=== PATIENT | female | born 2000 | race Caucasian/White ===

== ENCOUNTER 2025-07-06 10:06 | Outpatient (CLI) | payer OTHER, SELFPAY ==
--- OUTSIDE RECORDS SUMMARY | 2025-07-06 11:04 | XMS_ITS | Clinical Summary ---
Author Organization [facility] Healthcare Address [address] [place] [address] Care Team Providers Care Blanker Operator Name Role Phone No, Physician Primary Care Provider [phone] Allergies Active Allergy Reactions Criticality Noted Date Comments Hydrocodone-Acetaminophen Nausea & Vomiting High Medications levonorgestreL (Mirena) IUD Take by intrauterine route. Active FLUoxetine (PROzac) 40 mg capsule Take 1 capsule (40 mg total) by mouth daily 10/29/20 23 Active Additional Information Patient not taking.Reported on 03/14/2024 cyanocobalamin (Vitamin B-12) 1,000 mcg tabletIndicati ons:Prevention of Vitamin B12 Deficiency Take 1 tablet (1,000 mcg total) by mouth daily 11/25/19 24 Active cyanocobalamin (Vitamin B-12) 1,000 mcg/mL injection Inject 1 mL (1,000 mcg total) into the muscle as instructed every 30 (thirty) days for 3 doses 1 mL 2 06/18/20 25 025 Active cyanocobalamin (Vitamin B-12) 1,000 mcg/mL injection Inject 1 mL (1,000 mcg total) into the muscle as instructed every 7 days for 4 doses 11/02/20 23 025 Discontinued Active Problems Problem Noted Date Diagnosed Date 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 major depressive episodes, moderate Ataxia 10/22/2023 Visual disturbance 03/14/2022 Steatosis of liver 02/08/2021 Contraceptive management 12/08/2018 Overview (10/22/2023): Encounter for routine checking of intrauterine contracep dev;Practice ID: [id number] Bleeding 11/24/2018 Overview (10/22/2023): Abnormal uterine and vaginal bleeding, unspecified;Recorded Elsewhere: No Location: [facility] Source: EHR Chronic: N Practice ID: [id number] Billable Time: 09:00:00 AM Syphilis contact 04/28/2016 Overview (10/22/2023): Encntr screen for infections w sexl mode of transmiss;Recorded Elsewhere: No Location: [facility] Source: EHR Chronic: N Practice ID: [id number] Billable Time: 01:00:00 PM Irregular periods 05/11/2015 Overview (10/22/2023): Irregular menstrual bleeding;Recorded Elsewhere: No Location: [facility] Source: EHR Chronic: N Practice ID: [id number] Billable Time: 03:45:00 PM Leukorrhea 03/10/2015 Overview (10/22/2023): Leukorrhea, not specified as infective;Recorded Elsewhere: No Location: [facility] Source: EHR Chronic: N Practice ID: [id number] Billable Time: 08:45:00 AM Presence of subcutaneous contraceptive implant 0 05/11/2014 Overview (10/22/2023): Surveillance of implantable subdermal contraceptive;Recorded Elsewhere: No Location: [facility] Source: EHR Chronic: N Practice ID: [id number] Billable Time: 09:30:00 AM Encounters Date Type Department Care Team Description 06/30/2025 8:00 AM CDT Therapy [facility] OP Occup Therapy [address] [place] [id number] Gabino Storey OT 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 (Primary Dx); Ataxia 06/30/2025 Plan of Care Documentation [facility] OP Occup Therapy [address] [place] [phone] 06/16/2025 Telephone [facility] [address] [place] [address] [address] [place] [address] Nafisa Gustafson Med Refill 05/19/2025 1:30 PM CDT Office [facility] [address] [place] [address] [address]th [address] [place] [address] Reina Dumont MD 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 (HCC) (Primary Dx); Ataxia; Paresthesias; Depression, unspecified depression type; Decreased mobility and endurance from Last 3 Months Immunizations Immunization Administration Dates Next Due DTaP 10/04/2004, 1,2000,06/13,2000 HPV, Quadrivalent 04/06/2014,12/19/2013,04/16/20 12 Hep A, Pediatric 12/19/2013,05/04/2011 Hep B / HiB 2000,2000,2000 HiB 05/15/2001 IPV 10/04/2004, 1,2001,06/13,2000 MMR 10/04/2004,05/15/2001 Meningococcal B, Recombinant (Trumenba) 09/20/2018,05/10/2017 Meningococcal Conjugate (Menveo) 05/04/2011 Meningococcal MCV4P (Menactra) 05/10/2017 Pneumococcal Conjugate 7-Valent 10/18/20,2001,2000,08/15 Tdap 03/08/2021,03/04/2021,05/04/2011 Varicella 05/04/2011,2001 Surgical History Surgery Date Site/Laterality Comments TONSILLECTOMY/ADENOIDECTOMY LUMBAR PUNCTURE WO INJECTION, DIAGNOSTIC 10/25/2023 N/A Medical History Medical History Date Comments Depression Anxiety Family History Medical History Relation Name Comments Tourette syndrome Father No Known Problems Mother Relation Name Status Comments Father Mother Social History Tobacco Use Types Packs/Day Years Used Date Smoking Tobacco: Former Cigarettes Passive Smoke Exposure: Never Smokeless Tobacco: Never Tobacco Cessation:Counseling Given: No Comments:Past cigarette use-only 1-2 on the weekends occasionally AUDIT-C Answer Date Recorded Q1: How often do you have a drink containing alc ohol? Monthly or less 12/11/2023 Q2: How many drinks containi ng alcohol do you have on a typical day when you are drinking? 5 or 6 12/11/2023 Q3: How often do you have si x or more drinks on one occasion? Less than monthly 12/11/2023 Hunger Vital Sign Answer Date Recorded Within the past 12 months, y ou worried that your food would run out before you got the money to buy more. Never true 05/19/20 25 Within the past 12 months, t he food you bought just didn't last and you didn't have money to get more. Never true 05/19/2025 Personal Safety Answer Date Recorded Have you ever been in or are you currently in a harmful physical or emotional relationship or is someone making you feel afraid or unsafe? 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 Gender Identity Not on file Sexual Orientation Not on file Obstetrics History Para Term AB IAB SAB Ectopic Multiple Livin g Live Births 0 0 0 0 0 0 0 0 0 0 0 Last Filed Vital Signs Vital Sign Reading Time Taken Comments Blood Pressure 105/72 05/19/2025 1:52 PM CDT Pulse 97 05/19/2025 1:52 PM CDT Temperature 37.1 C (98.7 F) 08/18/2024 3:08 PM CDT Respiratory Rate 18 01/16/2025 9:48 AM F[employer]TT[employer] INSTRUM[employer] INSPECTOR Oxygen Saturation 98% 05/19/2025 1:52 PM CDT Inhaled Oxygen Concentration - - Weight 86.4 kg (190 lb 8 oz) 05/19/2025 1:52 PM CDT Height 160 cm (5' 3) 05/19/2025 1:52 PM CDT Body Mass Index 33.75 05/19/2025 1:52 PM CDT Plan of Treatment Health Maintenance Due Date Last Done Comments Cervical Cancer Screening 2000 Depression Screening 2000 Pneumococcal vaccine <65 (1 of 1 - PPSV23, PCV20, or PCV21) 02/10/2006 10/18/2001, 2001, 2000, Additional history exists Regular Well Visit/Exam 18-64 02/10/2018 Covid-19 Vaccine (2 - 2023-2 5 season) 2024 02/15/2021 Influenza Vaccine (#1) 2025 DTaP/Tdap/Td Vaccine (9 - Td or Tdap) 03/08/2031 03/08/2021, 03/04/2021, 05/04/2011, Additional history exists Varicella Vaccines Completed 05/04/2011, 2001 HPV Vaccines Completed 04/06/2014, 11/21, 04/16/2012 Hepatitis C Screening Completed 10/22/2023 , 10/22/2023, 10/22/2023, Additional history exists Procedures Procedure Name Priority Date/Time Associated Diagnosis Comments HEPATITIS PANEL, ACUTE STAT 10/22/2023 8:23 PM FRETTED INSTRUMENTS INSPECTOR from Last 3 Months or Most Recently Relevant to Health Maintenance Results * Hepatitis panel, acute Blood (10/22/2023 8:23 PM FRETTED INSTRUMENTS INSPECTOR) Hep A IgM Nonreactive Nonreactive [facility] Hep B core IgM Nonreactive Nonreactive [facility] Hep C Ab Nonreactive Nonreactive [facility] Comment:Antibodies to HCV no t detected. Does NOT exclude the possibility of recent exposure to HCV. Current interpretive data was last revised on 22 HepBsAg Nonreactive Nonreactive [facility] Blood 10/22/2023 8:23 PM FRETTED INSTRUMENTS INSPECTOR 10/22/2023 8:40 PM FRETTED INSTRUMENTS INSPECTOR us Vini Cameron MD LAB MICROBIOLOGY - GENERAL ORDERABLES Final Result [facility] [place] [address] from Last 3 Months or Most Recently Relevant to Health Maintenance Insurance [facility] [place] [address] [place] [address] Advance Directives For more information, please contact: [phone] * Full Code (Latest Code Status on File) Date Activated Date Inactivated Comments 10/23/2023 3:31 PM 10/30/2023 8:13 PM Care Teams Blanker Operator Relationship Specialty Start Date End Date No, Physician PCP - General 12/11/23
== END 2025-07-06 10:07 | disposition home or self-care (01) ==
LOC: ANHAUDIO 10:07
PROVIDERS: PCP Pediatrics Adolescent Medicine; Visit Provider Otolaryngology
DX: H69.93 Unspecified Eustachian tube disorder, bilateral (principal)
CPT/HCPCS: 92557; 92567

== ENCOUNTER 2025-09-29 00:50 | Day surgery (SDC) | payer OTHER, SELFPAY ==
--- NOTE | 2025-09-21 12:49 | SUR.PREOP ---
[facility] has started construction of its new state of the art ER which will open Spring 2026. With this, we anticipate parking may be a challenge for some our surgical patients and families. Parking spaces are limited but are available for all Surgical, obstetrics, and ER patients sharing this lot. If you arrive and find you are having a hard time finding a parking space, please note that we understand the challenges, please drive around the hospital and park near Hospital Entrance 1. When you enter this entrance, you can ask a volunteer to direct or take you back to the surgical waiting area to check in. We appreciate everyone?s understanding of these expected challenges while we build for your future. Report to the Outpatient Waiting Room, entrance under the green pavilion located off [address], at time _630AM_ on date _09/29/25__. Planned Procedure Time: _830__.? Time changes happen often and if your time is changed the preop area will call you the afternoon before. - You and your visitor will be asked to self-screen and do not enter if you have any COVID symptoms. Please call surgeon if you need to reschedule. - A mask is optional within the hospital at this time. Patients may have clear liquids (water, carbonated beverages, clear teas, apple juice) until 3 hours prior to surgery with a maximum of 20 ounces. - No food from midnight until time of surgery and no smoking, or chewing tobacco (or any form of nicotine). No chewing gum, candy or mints. Take only the following medications with a SIP of water on the morning of surgery: __None__ DO NOT STOP ANY OF YOUR OTHER PRESCRIPTION MEDICATIONS PRIOR TO SURGERY EXCEPT THE FOLLOWING Hold all vitamins and supplements for 3 days per anesthesiologist. Medications to discontinue per physician __Per Surgeons instructions__ Date to take last dose of vitamins_09/25/25__ Please no make-up, nail yi, hairspray, perfume, deodorant, or body powder the day of surgery.? No jewelry (including any body piercings) or valuables the day of surgery, leave them at home.? Please take a shower or bath the night before, or the morning of, surgery with an antibacterial soap.? Wear comfortable, loose fitting clothing.? - Jewelry must be removed prior to entering the operating room.? Rings and piercings that are not removed may be cut off. - The hospital will not accept responsibility for valuables.? - Please leave all valuables, including medications, at home the day of surgery. If you are going home after surgery, a licensed regional owner operator truck driver must drive you home.? - NO public transportation without another adult if you receive anesthesia. - We recommend that an adult stay with you for 24 hours following discharge. - We also recommend that you do not drive, make important decision, drink alcoholic beverages, or take any drugs that were not prescribed by your health care provider for at least 24 hours after your discharge time. Follow any additional instructions given to you from your surgeon. Telephone instructions given to _Rosa Isela Meneses)__and asked if any additional questions and then verbalized understanding. Patient advised to call surgeon office or pre surgery nurse liaison [phone] if any additional questions.
[2025-09-21 12:57] VITALS: BMI 33.7
[2025-09-29] VITALS (7 sets, daily range): BP systolic 114–141; BP diastolic 67–88; PULSE 63–90; RESP 10–20; TEMP 36.4–36.6; O2SAT 99–100
--- OUTSIDE RECORDS SUMMARY | 2025-09-29 00:52 | XMS_ITS | Data Portability ---
Author Organization [place], [facility] Address [address] [place] [address] [address] Care Team Providers Care Inspector Aide Name Role Phone KEENAN ALMEIDA Primary Care Provider [phone] Assessment No assessment recorded. Plan of Treatment Reminders Order Date Submit Date Provider Last Modified By Organization Details Last Modified Time Details Appointments SURG Salpingec fl[place] 2024 08:30A Awa TSAI MD Not available Not available Not available SURG POST OP 2024 04:15P Awa TSAI MD Not available Not available Not available Lab test, urine 2024 025 [facility], [facility] [address], [place], [address], 05/27/2025 15:55:25 Referral None recorded. Procedures insertion , intrauter ine device (PROC) 2024 025 [facility], [facility] [address], [place], [address], 08/24/2025 12:52:26 Surgeries salpingec fl[place], laparosco pic (SURG) [id number] [place] [address], [facility] [address], [place], [address], 08/24/2025 09:50:47 hysterosc opy, removal of foreign body (SURG) 2024 025 [email or web address] [facility], [address], [place], [address], 08/24/2025 09:51:20 Imaging US, pelvis 2024 [address], [address], [place], [address], 08/13/2025 18:25:28 US, transvagi nal 2024 [address], [place], [address], 08/13/2025 18:25:28 Medication Orders Bactrim DS 800 mg-160 mg tablet 2024 025 [id number], [address], [place], [id number], 09/02/2025 13:04:05 ParaGard T 380A 380 square mm intrauter ine device 2024 025 [email or web address] [id number] [address], [place], [id number], 05/27/2025 16:07:18 Patient TargetsNo targets recorded. Patient InstructionsNo instructions recorded. Reason for Referral None Reported. Results Created Date Observation Date Name Description Value Unit Range Abnormal Flag Note LastModifiedBy Organization Detail LastModifiedTime 05/27/2005/27/2025 pregn maria isabel test, urine HCG negati ve Not Available [place] [address], [place], [address], 05/27/2025 15:55:18 08/24/2008/24/2025 inser tion, intra uteri ne devic e (PROC ) provider notes Not Available Tyrone kay [address], [place], [address], 08/20/2025 11:46:35 08/12/2008/13/2025 US, pelvi s No observ ation record ed. [email or web address] [place] [address], [place], [address], 08/13/2025 14:34:06 08/12/20 25 08/13/2025 US, trans vagin al No observ ation record ed. [email or web address] [place] [address], [place], [address], 08/13/2025 14:34:26 08/12/20 25 08/12/2025 US, pelvi s No observ ation record ed. amos Bernadette [address], [place], [address], 08/20/2025 16:27:13 Result Notes None recorded. Problems Name Problem SNOMED Code Status Onset Date Resolution Date Notes Provider Name and Address Organization Details Recorded Time Recurren t major depressi ve episodes , moderate [id number] Completed 05/23/2022 Padminialla Sim [facility] 2 12:41:27 Contrace ption care manageme nt Completed 201305/08/2022 Other specified contracep tive managemen t;Recorde d Elsewhere : No Locati on: [facility] So urce: EHR Chron ic: N Practic e ID: 0001 Bill able Time: 02:30:00 PM Padmini Sim [facility] 2 16:25:51 Educatio n Completed 201305/08/2022 Counselin g contracep tive managemen t;Practic e ID: [id number] Padmini [facility] 2 16:25:51 Implanta tion of subcutan eous contrace ptive Completed 201305/08/2022 Insertion of implantab le subdermal contracep tive;Jakob rded Elsewhere : No Locati on: [facility] So urce: EHR Chron ic: N Practic e ID: 0001 Bill able Time: 08:30:00 AM Padmini Sim [facility] 2 16:25:50 Subcutan eous contrace ptive implant present [id number] Completed 201305/08/2022 Surveilla nce of implantab le subdermal contracep tive;Jakob rded Elsewhere : No Locati on: [facility] So urce: EHR Chron ic: N Practic e ID: 0001 Bill able Time: 09:30:00 AM Padmini Sim [facility] 2 16:25:51 Speciali zed medical examinat ion Completed 201405/08/2022 Other specified chlamydia l diseases; Recorded Elsewhere : No Locati on: [facility] So urce: EHR Chron ic: N Practic e ID: 0001 Bill able Time: 08:45:00 AM Padmini Sim [facility] 2 16:25:51 Vaginiti s and vulvovag initis Completed 201405/08/2022 Vaginitis and vulvovagi nitis, unspecifi ed;Record ed Elsewhere : No Locati on: [facility] So urce: EHR Chron ic: N Practic e ID: 0001 Bill able Time: 08:45:00 AM Padmini Sim [facility] 2 16:25:50 Leukorrh ea [id number] Completed 201405/08/2022 Leukorrhe a, not specified as infective ;Recorded Elsewhere : No Locati on: [facility] So urce: EHR Chron ic: N Practic e ID: 0001 Bill able Time: 08:45:00 AM Padmini Sim [facility] 2 16:25:50 Venereal disease screenin g Completed 201405/08/2022 SCREEN FOR VENERAL DIS;Recor ded Elsewhere : No Locati on: [facility] So urce: EHR Chron ic: N Practic e ID: 0001 Bill able Time: 11:30:00 AM Padmini phan [facility] 2 16:25:50 Lilly aguilar medical examinat ion Completed 201405/08/2022 Gynecolog ical Examinati on;Record ed Elsewhere : No Locati on: [facility] So urce: EHR Chron ic: N Practic e ID: 0001 Bill able Time: 11:30:00 AM Padmini Sim [facility] 2 16:25:51 Irregula r periods [id number] Completed 201405/08/2022 Irregular menstrual bleeding; Recorded Elsewhere : No Locati on: [facility] Source: EHR Chron ic: N Practic e ID: 0001 Bill able Time: 03:45:00 PM Padmini phan [facility] 2 16:25:51 Finding of pattern of menstrua l cycle Completed 201405/08/2022 Excessive and frequent menstruat ion with irregular cycle;Rec orded Elsewhere : No Locati on: [facility] So urce: EHR Chron ic: N Practic e ID: 0001 Bill able Time: 01:30:00 PM Padmini Sim [facility] 2 16:25:50 Infectio n screenin g Completed 201505/08/2022 Encounter for screening for oth infec/par astc diseases; Recorded Elsewhere : No Locati on: [facility] So urce: EHR Chron ic: N Practic e ID: 0001 Bill able Time: 01:00:00 PM Padmini phan [facility] 2 16:25:50 Syphilis test finding [id number] Completed 201505/08/2022 Encntr screen for infection s w sexl mode of transmiss ;Recorded Elsewhere : No Locati on: [facility] So urce: EHR Chron ic: N Practic e ID: 0001 Bill able Time: 01:00:00 PM Padmini Sim [facility] 2 16:25:51 Procedur e Completed 201605/08/2022 Encounter for checking, reinserti on or removal of implantab le subdermal contracep tive;Jakob rded Elsewhere : No Locati on: [facility] So urce: EHR Chron ic: N Practic e ID: 0001 Bill able Time: 02:45:00 PM Padmini phan [facility] 2 16:25:51 Finding of pattern of menstrua l cycle Completed 201605/08/2022 Other specified irregular menstruat ion;Recor ded Elsewhere : No Locati on: [facility] So urce: EHR Chron ic: N Practic e ID: 0001 Bill able Time: 03:30:00 PM Padmini Sim [facility] 2 16:25:[address] Concept Completed 201605/08/2022 Encntr for creative coordinator exam (general) (routine) w/o abn findings; Practice ID: [id number] Padmini Sim [facility] 2 16:25:[address] Concept Completed 201605/08/2022 Encntr for routine child health exam w/o abnormal findings; Recorded Elsewhere : No Locati on: [facility] So urce: EHR Chron ic: N Practic e ID: 0001 Bill able Time: 01:15:00 PM Padmini Sim [facility] 2 16:25:51 Insertio n of intraute rine contrace ptive device Completed 201605/08/2022 Encounter for insertion of intrauter ine contracep tive device;Pr actice ID: [id number] Padmini Sim [facility] 2 16:25:51 Pregnanc y test negative [id number] Completed 201605/08/2022 Encounter for test, result negative; Practice ID: [id number] Padmini Sim [facility] 2 16:25:50 Finding of regulari ty of menstrua l cycle Completed 201705/08/2022 Irregular menstruat ion, unspecifi ed;Practi ce ID: 0001 Padmini Sim [facility] 2 16:25:50 Procedur e by method Completed 201805/08/2022 Encounter for ot general cnsl and advice on contracep tion;Prac uche ID: 0001 Padmini Sim [facility] 2 16:25:51 Bleeding Completed 201805/08/2022 Abnormal uterine and vaginal bleeding, unspecifi ed;Record ed Elsewhere : No Locati on: [facility] So urce: EHR Chron ic: N Practic e ID: 0001 Bill able Time: 09:00:00 AM Padmini [facility] 2 16:25:50 Contrace ptive sheath status [id number] Completed 201805/08/2022 Encounter for routine checking of intrauter ine contracep dev;Pract ice ID: 0001 Padmini Sim [facility] 2 16:25:50 Influenz a vaccinat ion declined [id number] Completed 202005/23/2022 Padminialla Sim [facility] 2 12:41:27 Tetanus vaccinat ion declined by patient [id number] Completed 202005/23/2022 Padmini Sim [facility] 2 12:41:27 Steatoti c liver disease [id number] Completed 202005/23/2022 Padminialla Sim [facility] 2 12:41:27 Visual disturba nce [id number] Completed 202105/23/2022 Padminialla Sim [facility] 2 12:41:27 Problem Notes None recorded. Procedures Surgical History Date Name Laterality Status Provider Name and Address Organization Details Recorded Time 05/27/20 25 IUD Replacement completed DARCY Keating [address], [place], [address], [facility] 05/27/2025 16:25:28 02/26/20 25 Date of Last Pap Smear completed Josi Early [facility] 07/08/2025 16:36:27 tonsilectomy/ad enoids completed Usha Hussain [facility] 05/19/2020 10:20:57 Imaging Results None recorded. Procedure Notes None recorded. Medical Equipment None Reported. Allergies Allergen ID Allergen Name Allergen Category Reaction Reaction Severity Criticality Documentation Date Start Date Code Code System Note Provider Name and Address Organization Details Recorded Time 1168 acetamino phen / hydrocodo ne medicatio n vomiting severe Not available 05/19/2020 67681 2 RxNorm Usha phan, [facility] 0 10:20:27 Medications Name Sig Start Date Stop Date Status Note LastModified by Organization Details LastModified Time fluoxetin e 40 mg capsule TAKE 1 CAPSULE BY MOUTH EVERY DAY 12/23 completed Not Available Not Available Not Available Mirena 21 mcg/24 hr (up to 8 years) 52 mg intrauter ine device Take by intraute rine route. 07/08 completed Not Available Not Available Not Available prednison e 10 mg tablet 08/30 completed Not Available Not Available Not Available doxycycli ne hyclate 100 mg capsule TAKE 1 CAPSULE BY MOUTH TWICE DAILY FOR 7 DAYS 01/01 completed Not Available Not Available Not Available azithromy dillon 250 mg tablet 07/22 completed Not Available Not Available Not Available Necon 1/35 (28) 1 mg-35 mcg tablet take 1 tablet by oral route every day 04/02 completed Prescrib ed Elsewher e: No Locat ion: [facility] odify By: andreea chowdhury DateTime : 01/01/20 17 02:47:11 PM Not Available Not Available Not Available ibuprofen 800 mg tablet TAKE 1 TABLET BY MOUTH 2 HRS BEFORE PROCEDUR E 07/08 completed Not Available Not Available Not Available Loestrin Fe 12/08 (28-Day) 1 mg-20 mcg (21)/75 mg (7) tablet take 1 tablet by oral route every day 04/02 completed Prescrib ed Elsewher e: No Locat ion: [facility] odify By: andreea chowdhury DateTime : 01/15/20 17 10:23:18 AM Not Available Not Available Not Available ibuprofen 200 mg capsule take 1 capsule by oral route every 6 hours as needed 06/19 completed Prescrib ed Elsewher e: Yes Loca tion: [facility] odify By: torin cabello DateTime : 03/03/20 14 02:30:00 PM Not Available Not Available Not Available metronida zole 0.75 % (37.5 mg/5 gram) vaginal gel INSERT ONE APPLICAT ORFUL VAGINALL Y AT BEDTIME 12/04 completed Not Available Not Available Not Available cyanocoba ray (vit B-12) 1,000 mcg tablet TAKE 1 TABLET BY MOUTH EVERY DAY active Not Available Not Available No t Available metronida zole 500 mg tablet TAKE 1 TABLET BY MOUTH EVERY 12 HOURS FOR 7 DAYS 04/15 completed Not Available Not Available Not Available bacitraci n zinc 500 unit/gram topical ointment APPLY TO THE AFFECTED AREA OF SKIN TWICE DAILY FOR 5 DAYS 03/14 completed Not Available Not Available Not Available triamcino lone acetonide 0.1 % topical cream APPLY THIN LAYER TOPICALL Y TO THE AFFECTED AREA TWICE DAILY 03/29 completed Not Available Not Available Not Available ondansetr on 8 mg disintegr ating tablet DISSOLVE 1 TABLET ON THE TONGUE 2 HOURS BEFORE PROCEDUR E 07/08 completed Not Available Not Available Not Available acetamino phen ER 650 mg tablet,ex tended release TAKE 2 TABLETS BY MOUTH EVERY 8 HOURS NEEDED FOR PAIN 12/23 completed Not Available Not Available Not Available oxycodone -acetamin ophen 5 mg-325 mg tablet TAKE 2 TABLETS BY MOUTH 2 HOURS BEFORE PROCEDUR E 07/08 completed Not Available Not Available Not Available alprazola m 0.5 mg tablet TAKE 1 TABLET BY MOUTH 2 HOURS BEFORE PROCEDUR E 07/08 completed Not Available Not Available Not Available baclofen 10 mg tablet TAKE 1 TABLET BY MOUTH THREE TIMES DAILY FOR 10 DAYS NEEDED 12/04 completed Not Available Not Available Not Available benzonata te 100 mg capsule TAKE 1 TO 2 CAPSULES BY MOUTH THREE TIMES DAILY NEEDED FOR COUGH 07/22 completed Not Available Not Available Not Available doxycycli ne monohydra te 100 mg capsule TAKE 1 CAPSULE BY MOUTH TWICE DAILY FOR 7 DAYS DIRECTED 03/29 completed Not Available Not Available Not Available cephalexi n 500 mg capsule TAKE 1 CAPSULE BY MOUTH FOUR TIMES DAILY 03/14 completed Not Available Not Available Not Available cyanocoba ray (vit B-12) 1,000 mcg/mL injection solution ADMINIST ER 1 ML UNDER THE SKIN EVERY MONTH DIRECTED active Not Available Not Available No t Available fluoxetin e 20 mg tablet TAKE 2 TABLETS BY MOUTH EVERY DAY 12/23 completed Not Available Not Available Not Available lidocaine 5 % topical patch APPLY 1 PATCH TOPICALL Y TO THE SKIN EVERY DAY. MAY WEAR UP TO 12 HOURS 12/23 completed Not Available Not Available Not Available BD Luer-Breonna Syringe 3 mL 25 gauge x 1 USE TO INJECT ONCE A MONTH active Not Available Not Available No t Available norethind stella acetate 1 mg-ethiny l estradiol 20 mcg tablet TK 1 T PO ONCE D SKIPPING PLACEBO FOR CONTINUO US CYCLE 01/25 completed Not Available Not Available Not Available azelastin e 137 mcg (0.1 %) nasal spray USE 2 SPRAYS IN EACH NOSTRIL TWICE DAILY active Not Available Not Available No t Available levofloxa dillon 750 mg tablet TAKE 1 TABLET BY MOUTH EVERY DAY FOR 5 DAYS DIRECTED FOR EAR INFECTIO N 12/23 completed Not Available Not Available Not Available methylpre dnisolone 4 mg tablets in a dose pack FOLLOW PACKAGE DIRECTIO NS 07/22 completed Not Available Not Available Not Available ketoconaz ole 2 % topical cream APPLY TOPICALL Y TO THE AFFECTED AREA EVERY DAY FOR 2 WEEKS 07/22 completed Not Available Not Available Not Available fluoxetin e 20 mg capsule TAKE 1 CAPSULE BY MOUTH EVERY DAY 01/20 completed Not Available Not Available Not Available fluticaso ne propionat e 50 mcg/actua tion nasal spray,mart[employer] pension SHAKE LIQUID AND USE 2 SPRAYS IN EACH NOSTRIL EVERY DAY 12/23 completed Not Available Not Available Not Available ParaGard T 380A 380 square mm intrauter ine device Take 1 device by intraute rine route. 2024 active Not Available Not Available Not Avai lable naproxen 500 mg tablet TAKE 1 TABLET BY MOUTH TWICE DAILY FOR 5 DAYS NEEDED 03/14 completed Not Available Not Available Not Available amoxicill in 875 mg-potass ium clavulana te 125 mg tablet TAKE 1 TABLET BY MOUTH EVERY 12 HOURS FOR 7 DAYS DIRECTED 12/23 completed Not Available Not Available Not Available Bactrim DS 800 mg-160 mg tablet Take 1 tablet every 12 hours by oral route. 2024 active Not Available Not Available Not Avai lable ciproflox acin 0.3 %-dexamet hasone 0.1 % ear drops,[employer] pension SHAKE LIQUID AND INSTILL 4 DROPS TO AFFECTED EAR TWICE DAILY FOR 7 DAYS DIRECTED 12/23 completed Not Available Not Available Not Available cholecalc iferol (vitamin D3) 25 mcg (1,000 unit) tablet TAKE 2 TABLETS EVERY DAY 01/20 completed Not Available Not Available Not Available tranexami c acid 650 mg tablet take 2 tablet by oral route 3 times every day during menses 05/23 completed Prescrib ed Elsewher e: No Locat ion: [facility] odify By: [email or web address] Rachelte r DateTime : 11/25/19 09:00:00 AM Not Available Not Available Not Available salicylic acid 27.5 % topical film-form ing liquid APPLY TO WART WITH 2 APPLICAT IONS ONCE DAILY active Not Available Not Available No t Available Eclipse Syringe 3 mL 25 gauge x 1 USE ONCE MONTHLY 04/15 completed Not Available Not Available Not Available Lomedia 24 Fe 1 mg-20 mcg (24)/75 mg (4) tablet take 1 tablet by oral route every day 04/02 completed Prescrib ed Elsewher e: No Locat ion: [facility] odify By: emerabel Rasmussen r DateTime : 12/29/19 02:45:00 PM Not Available Not Available Not Available Vitals Date Recorded Body height Body mass index (BMI) Body weight Systolic And Diastolic Provider Name and Address Organization Details Last Updated DateTime 05/27/2025 159.39 cm 34.2 kg/m2 64867.02 g 100/70 mm[Hg] Amanda Javier [facility] 05/27/2025 15:16:20 Date Recorded Body height Body mass index (BMI) Body weight Systolic And Diastolic Provider Name and Address Organization Details Last Updated DateTime 07/08/2025 159.39 cm 35.4 kg/m2 24677.29 g 112/78 mm[Hg] Josi Early [facility] 07/08/2025 16:35:15 Date Recorded Body height Body mass index (BMI) Body weight Systolic And Diastolic Provider Name and Address Organization Details Last Updated DateTime 08/20/2025 159.39 cm 35.5 kg/m2 26785.88 g 121/84 mm[Hg] Vy [facility] 08/20/2025 11:15:24 Date Recorded Body height Body mass index (BMI) Body weight Systolic And Diastolic Provider Name and Address Organization Details Last Updated DateTime 09/02/2025 159.39 cm 35.4 kg/m2 25946.29 g 114/73 mm[Hg] Vy [facility] 09/02/2025 12:49:12 Social History Question Answer Notes LastModified by Organizat ion Details LastModified Time Tobacco Smoking Status Former Smoker Josi Early [facility] 12/23/2024 12:14:44 Are You Blind Or Do You Have Difficulty Seeing? No Information not available 05/08/2022 What Is Your Level Of Caffeine Consumption? Occasional Information not available 05/08/2022 In The 14 Days Before Symptom Onset, Have You Had Close Contact With A Laboratory-confir med COVID-19 While That Case Was Ill? No Information not available 01/21/2024 In The 14 Days Before Symptom Onset, Have You Had Close Contact With A Person Who Is Under Investigation For COVID-19 While That Person Was Ill? No Information not available 01/21/2024 Have You Been To An Area Known To Be High Risk For COVID-19? No Information not available 01/21/2024 Are You Deaf Or Do You Have Serious Difficulty Hearing? No Information not available 05/08/2022 What Type Of Diet Are You Following? REGULAR Information not available 05/08/2022 Do You Use Your Seat Belt Or Car Seat Routinely? Yes Information not available 05/08/2022 Do You Have Smoke And Carbon Monoxide Detectors In Your Home? Yes Information not available 05/08/2022 Do You Use Sunscreen Routinely? Yes Information not available 05/08/2022 Do You Have Difficulty Walking Or Climbing Stairs? No [email or web address] Information not available 12/04/2022 Sex: Unknown Functional Status Question Answer Note LastModified by Organizat ion Details LastModified Time Do you use any illicit or recreational drugs? No Information not available 05/08/2022 What is your level of alcohol consumption? Occasional Information not available 05/08/2022 Are you able to walk independently without assistance or assistive devices? YESWOREST Information not available 05/08/2022 Are you able to care for yourself independently? Yes Information not available 12/04/2022 Do you have difficulty dressing, bathing, grooming, or toileting? No [email or web address] Information not available 12/04/2022 What is your exercise level? Moderate Information not available 05/08/2022 Mental Status Question Answer Note LastModified by Organization D etails LastModified Time Do you feel stressed (tense, restless, nervous, or anxious, or unable to sleep at night)? [id number] Information not available 05/08/2022 Family History Relationship Description Onset Age of this Age Resolved Age Notes LastModified by Organization Details LastModified Time Father No current problems or disability [email or web address] Not available 04/15 11:19:52 Mother No current problems or disability [email or web address] Not available 04/15 11:19:52 Medical History Condition Response Allergies (Food, seasonal, environmental ) N Other Y Drug/Latex Allergies/Reactions N Blood Transfusion N Breast Cancer N Dermatologic Disorders N Lung Disease N Defects or Inherited Disease N Breast Problem N Gestational Diabetes N Hematologic disorders N Anesthesia Complications N History of STI Y Deep Vein Thrombosis N Polycystic ovary syndrome N Anxiety Disorder N Autoimmune disease N Arthritis N Polyps N Infertility N Acid Reflux (GERD) N History of abnormal pap N Cancer N Varicosities N Stroke N Neurologic/Epilepsy N Endometriosis N High Cholesterol N Fibromyalgia N Headaches N Kidney Disease N Heart Problems N Thyroid Problems N Kidney or Bladder Problems N GI Problems N Eating Disorder N Anemia N Art (IVF or FET) N Psychiatric Illness N Ovarian Cancer N Diabetes N Pulmonary (TB, Asthma) N Hepatitis/Liver Disease N Eczema N Urinary Tract Infection N Abuse/Domestic Violence N Asthma N Trauma/Violence N Depression/ depression N Heart Disease N Pre-Eclampsia N Hypertension N Osteoporosis N Thrombophilias N Gynecological History Statement/Question Response Abnormal Pap N Flow Moderate Date of Last Mammogram Date of LMP 06/25/2025 Was last menstrual period normal Y STIs/STDs N HPV Vaccine Y Duration of Flow (days) 4 Current Control Method IUD Are cycles usually normal Y Sexually Active? Y Menses Monthly Y Age of first menstrual cycle 11 Date of Last Pap Smear 02/25/2025 Sexual Problems? N LMP Definite Obstetrics History GPAL:G 0 P 0 0 0 0 Immunizations Vaccine Type Date Status Note Provider Tarun mercer and Address Organization Details Recorded Time Tdap 03/08/2021 completed Padmini [facility] 05/23/2022 12:41:12 COVID-19, mRNA, LNP-S, PF, 100 mcg/0.5mL dose or 50 mcg/0.25mL dose 02/15/2021 completed Padmini [facility] 05/23/2022 12:41:13 Past Encounters Encounter ID Performer Location Encounter Start Date Encounter Closed Date Diagnosis/Indication Diagnosis SNOMED-CT Code Diagnosis ICD10 Code Diagnosis IMO Codes Diagnosis Note [id number] [address] [address] 05/19/2020 10:10:08 05/19/2020 11:01:32 Gynecologic examination [id number] Z01.419 Take Calcium with Vitamin D 1200mg daily if not receiving in daily diet. It is strongly advised to have an annual flu shot and up can obtain at most pharmacies . If you have not had a TDap shot in the last 10 years you should obtain one as well. Discussed with patient & provided with informatio n regarding Gardisil vaccine to prevent the 4 strains for HPV that cause cervical cancer. Encourage safe sexual practices, to use condoms and limit partners if not already in a monogamous relationsh ip. Do monthly self breast exams. BRCA testing is now available for patients with strong genetic history of female cancer. If interested contact the office. Engage in daily exercise of low impact aerobic exercise 45-60 minutes 4-5 times weekly. Avoid tobacco, illicit drugs, and alcohol. This lifestyle behavior pattern will lead to less health conditions and longer life span. If BMI greater than 25 weight watchers or dietary consult advised. Pap smear is not recommende d prior to the age of 21. If you have any concerns, pelvic, or vaginal problems we can discuss testing. Patient received above instructio ns, and questions have been answered. If you have any questions please call or respond to this email. Patient was made aware of the patient portal and may obtain a paper copy of today's plan if desired. Sexually t ransmitted infectious disease 8980287 A64 Uses IUD (intrauterine device) contraception 921203340 Z97.5 TVUS w/ OV for IUD string check. Unable to see strings today. Been having random cramping. [id number] Chicho Tsai MD [facility] [address] [address] 06/14/2020 11:23:13 06/14/2020 12:34:21 Mechanical complication of intrauterine contraceptive device 956791862 T83.39XA [id number] Nani aFrias [facility]ADEEMUC [facility] [address],[place] [address] 06/14/2020 11:23:45 06/14/2020 12:30:35 Intrauterine device check [id number] Z30.431 We reviewed TVUS today. IUD is in place but has questionab le area in right adnexa. Not sure if bowel or other. Some vascularit y is noted. R/P TVUS was suggested as this is the side patient will sometimes have random cramping on at times. R/P TVUS is 6-8wks. Patient is to contact office or go to nearest ED/Urgent care if fever >/= 100.1, pain, excessive bleeding, unusual drainage or swelling in area of concern; or experienci ng worsening sx's or new onset of concerning sx's. Understand ing verbalized . All questions answered to patient satisfacti on. Time spent in visit is a total of 15 mins with at least 50% of visit consisting of counseling and review of plan of care. [id number] Nani Farias [facility] [address],[place] [address] 08/16/2020 10:53:45 08/16/2020 11:50:36 Pain in pelvis 09795097 R10.2 We reviewed TVUS today. Aware that MD will provide feedback to today's imaging. Will call if changes in plan. We agreed to start June12/08 for at least 3mos as she seems to continue to create cysts which create pain. Her IUD seems to be in place. She likes this idea but still would like MD consult to ensure no other issues. Will schedule. We need to f/u in 3mos for med check unless f/u with Dr. Tsai first. She agrees. Patient is to contact office or go to nearest ED/Urgent care if fever >/= 100.1, pain, excessive bleeding, unusual drainage or swelling in area of concern; or experienci ng worsening sx's or new onset of concerning sx's. Understand ing verbalized . All questions answered to patient satisfacti on. Time spent in visit is a total of 15 mins with at least 50% of visit consisting of counseling and review of plan of care. [id number] Chicho Tsai MD [facility] [address],[place] [address] 08/16/2020 10:54:22 08/16/2020 11:51:10 Abnormal radiologic density 53292056 R93.89 R10.2 N83.292 [id number] Chicho Tsai MD [facility] [address],[place] [address] 08/30/2020 11:53:38 08/30/2020 15:15:01 Hydrosalpinx 91087487 N70.11 Cyst of ovary 80802473 N 83.209 This patient is a 20-year-ol d female presents for follow-up on ovarian cyst and hydrosalpi nx. She had ultrasound evaluation that revealed a 3 cm ovarian cyst and a 4 cm hydrosalpi nx. She also had questions about the combined oral contracept abi pills that were prescribed for her. This was likely done to inhibit ovulation control ovarian cyst. The patient has had just this 1 cyst. According to her. She wants to discontinu e the oral contracept abi pills. She has not started them. We agreed to discontinu e that. She has Mirena IUD and her bleeding is well controlled . We agreed to repeat ultrasound in 8 weeks to follow the ovarian cyst and the hydrosalpi nx. We spent more than 15 minutes face-to-fa ce. More than 50% of this counseling . [id number] Chicho Tsai MD [facility] [address],[place] [address] 12/02/2020 09:57:04 12/02/2020 10:58:20 Pain in pelvis 82703317 R10.2 [id number] Chicho Tsai MD [facility] [address],[place] [address] 12/02/2020 09:57:40 12/02/2020 11:29:05 Hydrosalpinx 60096898 N70.11 this patient is a 20-year-ol d female with the cystic adnexal structure. It is possibly hydrosalpi nx. She has pain only same side. The structures on the left, her pains on the left. Her ultrasound today showed a smaller structure. It is slightly smaller previously seen. Talked about treatment. Talked about observatio n. We spent 15 minutes face-to-fa ce. She agreed to follow-up ultrasound 6 months. She will contact us if pain improves /worsens and she wants treatment. [id number] Chicho Tsai MD [facility] [address],[place] [address] 03/14/2021 14:09:31 03/14/2021 14:43:34 Cyst of right ovary [id number] 1272855 N83.201 R93.89 [id number] Chicho Tsai MD [facility] [address],[place] [address] 03/14/2021 14:09:51 03/14/2021 15:09:30 Hydrosalpinx 06524426 N70.11 This patient is a 21-year-ol d female who presents for follow-up on possible hydrosalpi nx. Pelvic ultrasound was repeated today. There is no change in the cystic adnexal structure. We discussed those results. Patient will follow-up in 6 months. We will repeat ultrasound at that time. She has no symptoms. Her pain is resolved. [id number] Nani Farias [facility] [address],[place] [address] 05/09/2022 13:06:44 06/19/2022 09:38:53 [id number] Nani Farias [facility] [address],[place] [address] 05/23/2022 12:25:38 05/23/2022 13:05:25 Gynecologic examination 67128685 Z01.419 Take Calcium with Vitamin D 1200mg daily if not receiving in daily diet. It is strongly advised to have an annual flu shot and up can obtain at most pharmacies . If you have not had a TDap shot in the last 10 years you should obtain one as well. Discussed with patient & provided with informatio n regarding Gardisil vaccine to prevent the 4 strains for HPV that cause cervical cancer. Encourage safe sexual practices, to use condoms and limit partners if not already in a monogamous relationsh ip. Do monthly self breast exams. BRCA testing is now available for patients with strong genetic history of female cancer. If interested contact the office. Engage in daily exercise of low impact aerobic exercise 45-60 minutes 4-5 times weekly. Avoid tobacco, illicit drugs, and alcohol. This lifestyle behavior pattern will lead to less health conditions and longer life span. If BMI greater than 25 weight watchers or dietary consult advised. Pap smear is not recommende d prior to the age of 21. If you have any concerns, pelvic, or vaginal problems we can discuss testing. Patient received above instructio ns, and questions have been answered. If you have any questions please call or respond to this email. Patient was made aware of the patient portal and may obtain a paper copy of today's plan if desired. Pap sentSTD Screen sentGeneti c Screen discussedC olon Screen naDexa Screen naRoutine Labs namammo na A Mirena IUD prevents for up to 7 years, and also helps with heavy periods for up to 5 years in women who choose an IUD for control. Cyst of ovary 47875426 N 83.209 Overdue for q6mos USDoing better but will still get that same cramping some months. [id number] Chicho Tsai MD [facility] [address],[place] [address] 06/06/2022 12:30:04 06/06/2022 13:14:11 Cyst of right ovary [id number] N83.201 R93.89 R10.2 [id number] DARCY Keating [facility] [address],[place] [address] 12/04/2022 14:06:07 12/04/2022 14:50:14 Exposure to sexually transmissible disorder 557462055 Z20.2 STI endocervic al testing sentVagini tis panel sentBlood STI panel orderedRx sent for chlamydia given recent exposureR/ B of medication discussedA bstain from IC until both have completed treatment and its been 10 days since last dose for bothIf (+), MILLI needed in 4-6 weeks Time spent in visit is a total of 22 mins with at least 50% of visit consisting of counseling and review of plan of care. Venereal d isease screening 972870060 Z11.3 Sexually t ransmitted infectious disease 3682353 A64 [id number] DARCY Keating [facility] [address],[place] [address] 01/01/2023 14:03:09 01/01/2023 14:26:37 Venereal disease screening 523635649 Z11.3 Urine GC/CT/Tric h testing sentRecomm end partner goes to PCP/health department for a TOCNo symptoms, feeling wellAll questions answeredDu e for a repeat u/s for evaluation of stable hydrosalpi nx noted on previous u/s. No pain or symptoms. She will schedule this Time spent in visit is a total of 15 mins with at least 50% of visit consisting of counseling and review of plan of care. Hydrosalpinx 48482813 N7 0.11 [id number] Chicho Tsai MD [facility] [address],[place] [address] 01/11/2023 10:15:03 01/11/2023 11:44:28 Hydrosalpinx 52379346 N70.11 R10.2 [id number] Chicho Tsai MD [facility] [address],[place] [address] 01/18/2023 12:26:52 01/18/2023 13:51:35 Pain in pelvis 98195219 R10.2 Hydrosalpinx 00334746 N7 0.11 R10.2 Cyst of ovary 92134701 N 83.209 this patient is a 22-year-ol d female presents for follow-up on pelvic pain and hydrosalpi nx. She had a pelvic ultrasound as well. We reviewed the results of the pelvic ultrasound . She has a stable hydrosalpi nx on the left and a complex right ovarian cyst that appears to have blood within it. She had some pretty significan t pain recently but has little pain at this time. We agreed to observe. We spent more than 20 minutes discussing this issue. More than 50% was counseling we are going to repeat ultrasound in 2 months in follow-up. [id number] MITZI REYNOLDS MD [facility] [address],[place] [address] 08/24/2023 16:13:18 08/24/2023 16:50:51 Sexually transmitted infectious disease 3787649 A64 - unprotecte d intercours e 08/17, concerned for possible exposure- no lesions or abnormal discharge on exam today- swab sent, blood tests ordered [id number] DARCY Keating [facility] [address],[facility] [place] [address] 01/21/2024 11:11:33 01/21/2024 11:56:42 Gynecologic examination 63296474 Z01.419 WWEpap updatedgc/ ct/trich testing added to papHIV/Hep B&C/syphil is testing ordered per pt requestsaf e sexual practices discussed, condom use encouraged routine labs/PCP Take Calcium with Vitamin D daily if not receiving in daily diet.It is strongly advised to have an annual flu shot and up can obtain at most pharmacies . If you have not had a TDap shot in the last 10 years you should obtain one as well. Discussed with patient & provided with informatio n regarding Gardisil vaccine to prevent the 4 strains for HPV that cause cervical cancer if under age 26.Encoura ge safe sexual practices, to use condoms and limit partners if not already in a monogamous relationsh ip.Do monthly self breast exams. Engage in daily exercise of low impact aerobic exercise 45-60 minutes 4-5 times weekly. Avoid tobacco and illicit drugs. This lifestyle behavior pattern will lead to less health conditions and longer life span. If BMI greater than 25 dietary consult advised.Magdaleno wagner received above instructio ns, and questions have been answered. If you have any questions please call or respond to this email. Patient was made aware of the patient portal and may obtain a paper copy of today's plan if desired. Venereal d isease screening 668047584 Z11.3 Cyst of ovary 53593677 N 83.209 recommende d repeat u/s d/t complex ovarian cyst and hydrosalpi nx previous seen 01/2023 Sexually t ransmitted infectious disease 0906677 A64 Contracept ion care management 120985323 Z30.9 happy with IUD and desires to continue this methodwill 06/19/2025 , pt aware Unprotecte d sexual intercourse 9066437 Z72.51 [id number] Chicho Tsai MD [facility] [address] [address] 01/29/2024 14:28:21 01/29/2024 15:10:15 Cyst of left ovary 3916428507 9147706 N83.292 [id number] Chicho Tsai MD [facility] [address] [address] 08/01/2024 15:56:59 08/01/2024 16:06:55 [id number] DARCY Keating [facility] [address] [address] 12/23/2024 12:02:01 12/23/2024 13:56:49 Venereal disease screening 175774924 Z11.3 gc/ct/tric h urine testing sentHIV/He p B&C/Syphil is testing ordered per pt requestsaf e sexual practices discussedq uestions answered Time spent in visit is a total of 15 mins with at least 50% of visit consisting of counseling and review of plan of care. Sexually t ransmitted infectious disease 5979492 A64 [id number] Arminda Omer [facility] [address] [address] 02/25/2025 11:51:11 02/25/2025 13:36:20 Gynecologic examination 31734718 Z01.419 EB - Mirena IUD (inserted 06/19/2017 and will 06/19/2025)P ap - done todaySTI screen - gc/ct/tric h testing added to papRoutine labs - PCPRTC in 1 yr or sooner if needed It is strongly advised to have an annual flu shot and up can obtain at most pharmacies . If you have not had a TDap shot in the last 10 years you should obtain one as well. Discussed with patient & provided with informatio n regarding the HPV vaccine if applicable . Encourage safe sexual practices, to use condoms and limit partners if not already in a monogamous relationsh ip. Do monthly self breast exams. BRCA testing is now available for patients with strong genetic history of female cancer. If interested contact the office. Engage in regular exercise. Avoid tobacco and illicit drugs. This lifestyle behavior pattern will lead to less health conditions and longer life span. If BMI greater than 25 dietary consult advised. Questions answered. Hydrosalpinx 63249195 N7 0.11 previously followed with gyne onc, has been released from f/u per consult noteschedu led to repeat pelvic u/s in 6 months per gyne onceprecau tions discussed Contracept ion care management 989904704 Z30.9 All BC options discussedi nt in Paraguard IUDschedul ed to RTC for Mirena removal with paraguard insertion prior to IUD expiration Venereal d isease screening 390208653 Z11.3 [id number] DARCY Keating [facility] [address],[place] [address] 04/15/2025 10:53:23 04/15/2025 13:53:06 Infection by Trichomonas 26434724 A59.9 82476 MILLI urine sentDiscus sed the various types of STIs, related symptoms and the potential consequenc es (including effects on fertility) of STI infections . Reviewed ways to limit exposure and prevention techniques . Contracept ion care management 127627431 Z30.9 [id number] she desires to switch to paraguard IUD (as previously discussed at [facility])pain management options reviewed, she desires pre-proced ure medication (r/b/a reviewed)s he will RTC for Mirena IUD removal with ParaGuard IUD insertion Time spent in visit is a total of 20 mins with at least 50% of visit consisting of counseling and review of plan of care. [id number] Arminda Omer NADEEM [facility] [address],[place] [address] 05/27/2025 14:55:32 05/27/2025 16:28:45 Removal of intrauterine contraceptive device 7483244199 Z30.151 [id number] Pt desired mirena IUD removal with Paraguard IUD insertionr /b discussed with ptUPT (-)Mirena removed and Paraguard inserted (see procedure note)preca utions discussed, RTC for string check in 4-6 wks Time spent in visit is a total of 25 mins with at least 50% of visit consisting of counseling and review of plan of care. Insertion of intrauterine contraceptive device 54705837 Z30.430 [id number] DARCY Keating [facility] [address],[facility] [place] [address] 07/08/2025 16:26:19 07/09/2025 10:03:35 Intrauterine contraceptive device in situ 578409801 Z30.431 [id number] Patient is here for 4-6wk IUD string check.Norm al appearing IUD strings noted on exam She denies complicati ons, pain, or unpleasant side effects. Happy with this control method. Wishes to continue.R TC for WWE or sooner if needed Time spent in visit is a total of 20 mins with at least 50% of visit consisting of counseling and review of plan of care. [id number] Chicho Tsai MD [facility] [address] [address] 08/12/2025 15:22:37 08/13/2025 09:17:03 Pelvic and perineal pain 388792997 R10.2 583597 [id number] Chicho Tsai MD [facility] [address] [address] 08/20/2025 11:02:06 08/20/2025 11:49:12 Pain in pelvis 26438659 R10.20 06210 Hydrosalpinx 95824001 N7 0.11 [id number] Malpositio n of intrauterine contraceptive device [id number] 3671274 T83.32XA [id number] this patient is a 25-year-ol d female with pelvic pain on the left and a left hydrosalpi nx. There is some worrisome features to the hydrosalpi nx. Excrescenc es without blood flow. She has a malpositio nicol IUD with the IUD arm embedded in the myometrium . We discussed these findings. We consider treatment options. We considered observatio n. We agreed to move forward with the surgical remediatio n and treatment of the problem. She agreed to laparoscop ic left salpingect venkatesh and hysterosco pic removal of foreign body with IUD placement. The patient understand s the procedure. The procedure was described to the patient in great detail. the patient also understand s the risks. The risks were also explained in detail. She understand s that injuries May occur during surgery. She understand s these injuries can result in hospitaliz ation, more surgery, and severe illness. She understand s there is risk of hemorrhage and infection. I spent over 30 minutes on her care in total. [id number] Chicho Tsai MD [facility] [address] [address] 09/02/2025 12:25:52 09/03/2025 09:05:04 Abscess of vulva 21852377 N76.4 [id number] this patient is a 25-year-ol d female who presents for vulvar lesion. She reports a tender vulvar nodule superior she had the right labia. It has been tender. It has had pus discharge. She is examined. There is a 1 cm nodular lesion on the anterior vulva on the right side. It is draining. She was to be treated with antibiotic s. She was prescribed Bactrim. She is given precaution s and instructio n. She understand s risks, benefits, and alternativ es. I spent over 20 minutes on the patient's care in total. Health Concerns Section Related Observation LastModified by Organization Detai ls LastModified Time None Recorded Concern Status LastModified by Organization Details LastModified Time None Recorded Advance Directives Directive None Recorded Payers Insurance Date Sequence Insurance Name Policy Number Policy Pérez Covered Member ID Pérez Member ID Guarantor Name 09/26/2025 1 [facility] (MEDICAID HMO) [id number] Caitlyn Goel [id number] Notes Date Note Type Note Provider Name and Address Organization Details Recorded Time 05/27/2025 text/html 25yopresents for Mirena removal and ParaGuard insertion DARCY Keating [address], [place], [address], [facility] 05/27/2025 16:27:54 07/08/2025 text/html 25yoPresents for IUD string checks/p ParaGuard insertion 05/27/2025 DARCY Keating [address], [place], [address], [facility] 07/09/2025 09:33:50 08/20/2025 text/html this patient is a 25-year-old female with pelvic pain on the left and a left hydrosalpinx. There is some worrisome features to the hydrosalpinx. Excrescences without blood flow. She has a malpositioned IUD with the IUD arm embedded in the myometrium. We discussed these findings. We consider treatment options. We considered observation. We agreed to move forward with the surgical remediation and treatment of the problem. She agreed to laparoscopic left salpingectomy and hysteroscopic removal of foreign body with IUD placement. The patient understands the procedure. The procedure was described to the patient in great detail. the patient also understands the risks. The risks were also explained in detail. She understands that injuries May occur during surgery. She understands these injuries can result in hospitalization, more surgery, and severe illness. She understands there is risk of hemorrhage and infection. I spent over 30 minutes on her care in total. Chicho Tsai MD [address], [place], [address], [facility] 08/20/2025 11:48:45 09/02/2025 text/html this patient is a 25-year-old female who presents for vulvar lesion. She reports a tender vulvar nodule superior she had the right labia. It has been tender. It has had pus discharge. She is examined. There is a 1 cm nodular lesion on the anterior vulva on the right side. It is draining. She was to be treated with antibiotics. She was prescribed Bactrim. She is given precautions and instruction. She understands risks, benefits, and alternatives. I spent over 20 minutes on the patient's care in total. Chicho Tsai MD [address], [place], [address], [facility] 09/02/2025 22:48:53 OBGyn Episode No OBEpisode recorded.
--- OUTSIDE RECORDS SUMMARY | 2025-09-29 00:52 | XMS_ITS | Clinical Summary ---
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 major depressive episodes, moderate Ataxia 10/22/2023 Visual disturbance 03/14/2022 Steatosis of liver 02/08/2021 Contraceptive management 12/08/2018 Overview (10/22/2023): Encounter for routine checking of intrauterine contracep dev;Practice ID: [id number] Bleeding 11/24/2018 Overview (10/22/2023): Abnormal uterine and vaginal bleeding, unspecified;Recorded Elsewhere: No Location: [facility] Source: EHR Chronic: N Practice ID: [id number] Billable Time: 09:00:00 AM Syphilis contact 04/28/2016 Overview (10/22/2023): Encntr screen for infections w sexl mode of transmiss;Recorded Elsewhere: No Location: [facility] Source: EHR Chronic: N Practice ID: [id number] Billable Time: 01:00:00 PM Irregular periods 05/11/2015 Overview (10/22/2023): Irregular menstrual bleeding;Recorded Elsewhere: No Location: [facility] Source: EHR Chronic: N Practice ID: [id number] Billable Time: 03:45:00 PM Leukorrhea 03/10/2015 Overview (10/22/2023): Leukorrhea, not specified as infective;Recorded Elsewhere: No Location: [facility] Source: EHR Chronic: N Practice ID: [id number] Billable Time: 08:45:00 AM Presence of subcutaneous contraceptive implant 0 05/11/2014 Overview (10/22/2023): Surveillance of implantable subdermal contraceptive;Recorded Elsewhere: No Location: [facility] Source: EHR Chronic: N Practice ID: [id number] Billable Time: 09:30:00 AM Encounters Date Type Department Care Team Description 08/13/2025 8:00 AM CDT Therapy [facility] OP Occup Therapy [address] [place] [id number] Gabino Storey OT 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 (Primary Dx); Ataxia 07/31/2025 10:00 AM CDT Therapy [facility] OP Occup Therapy [address] [place] [phone] Jaja Forbes OT 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 (Primary Dx); Ataxia 07/27/2025 8:00 AM CDT Therapy [facility] OP Occup Therapy [address] [place] [phone] Skylar Lim, BARROW 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 (Primary Dx); Ataxia 07/24/2025 10:00 AM CDT Therapy [facility] OP Occup Therapy [address] [place] [phone] Gabino Storey, OT 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 (Primary Dx); Ataxia 07/16/2025 3:00 PM CDT Therapy [facility] OP Occup Therapy [address] [place] [phone] Skylar Lim, BARROW 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 (Primary Dx); Ataxia 07/13/2025 8:00 AM CDT Therapy [facility] OP Occup Therapy [address] [place] [phone] Gabino Storey, OT 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 (Primary Dx); Ataxia 07/09/2025 11:00 AM CDT Therapy [facility] OP Occup Therapy [address] [place] [phone] Skylar Lim, BARROW 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 (Primary Dx); Ataxia 06/30/2025 8:00 AM CDT Therapy [facility] OP Occup Therapy [address] [place] [phone] Gabino Storey, OT 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 (Primary Dx); Ataxia 06/30/2025 Plan of Care Documentation [facility] OP Occup Therapy [address] [place] [phone] from Last 3 Months Immunizations Immunization Administration [...] on file Legal Sex 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 Gender Identity Not on file Sexual Orientation [...] CDT Respiratory Rate 18 01/16/2025 9:48 AM MERCHANT MARINER Oxygen Saturation 98% 05/19/2025 1:52 PM CDT [...] Visit/Exam 18-64 02/10/2018 Covid-19 Vaccine (2 - 2024-2 6 season) 2025 02/15/2021 Influenza Vaccine (#1) 2025 DTaP/Tdap/Td Vaccine (9 - Td or Tdap) 03/08/2031 03/08/2021, 03/04/2021, 05/04/2011, Additional history exists Varicella Vaccines Completed 05/04/2011, 2001 HPV Vaccines Completed 04/06/2014, 11/21, 04/16/2012 Hepatitis C Screening Completed 10/22/2023 , 10/22/2023, 10/22/2023, Additional history exists Procedures Procedure Name Priority Date/Time Associated Diagnosis Comments HEPATITIS PANEL, ACUTE STAT 10/22/2023 8:23 PM MERCHANT MARINER from Last 3 Months or Most Recently Relevant to Health Maintenance Results * Hepatitis panel, acute Blood (10/22/2023 8:23 PM MERCHANT MARINER) Hep A IgM Nonreactive Nonreactive [facility] Hep B core IgM Nonreactive Nonreactive [facility] Hep C Ab Nonreactive Nonreactive [facility] Comment:Antibodies to HCV no t detected. Does NOT exclude the possibility of recent exposure to HCV. Current interpretive data was last revised on 22 HepBsAg Nonreactive Nonreactive [facility] Blood 10/22/2023 8:23 PM MERCHANT MARINER 10/22/2023 8:40 PM MERCHANT MARINER us Vini Cameron MD LAB MICROBIOLOGY - GENERAL ORDERABLES Final Result [facility] Department [place] [address] from Last 3 Months or Most Recently Relevant to Health Maintenance Insurance [facility] Advance Directives For more information, please contact: [phone] * Full Code (Latest Code Status on File) Date Activated Date Inactivated Comments 10/23/2023 3:31 PM 10/30/2023 8:13 PM Care Teams Stone Setter Apprentice Relationship Specialty Start Date End Date No, Physician PCP - General 12/11/23
[2025-09-29] MEDS: ACETAMINOPHEN 500 MG TABLET 1000 MG PO (07:10)
[2025-09-29] MEDS: LACTATED RINGERS 1,000 ML 30 ML IV CONT (07:15)
[2025-09-29] MEDS: KETOROLAC 15 MG/ML VIAL (*BKC) IV PUSH (07:15)
[2025-09-29 07:25] LABS: BEDSIDEPREGUCG Negative (Negative)
--- NOTE | 2025-09-29 08:11 | PM.IMHP ---
H&P: HPI History of Present Illness Date/Time: 09/29/25 08:11 Chief Complaint: Pelvic pain Narrative: this patient is a 25-year-old female with pelvic pain on the left and a left hydrosalpinx. There is some worrisome features to the hydrosalpinx. Excrescences without blood flow. She has a malpositioned IUD with the IUD arm embedded in the myometrium. We discussed these findings. We consider treatment options. We considered observation. We agreed to move forward with the surgical remediation and treatment of the problem. She agreed to laparoscopic left salpingectomy and hysteroscopic removal of foreign body with IUD placement. The patient understands the procedure. The procedure was described to the patient in great detail. the patient also understands the risks. The risks were also explained in detail. She understands that injuries May occur during surgery. She understands these injuries can result in hospitalization, more surgery, and severe illness. She understands there is risk of hemorrhage and infection. I spent over 30 minutes on her care in total. Review of Systems Review of Systems: All systems reviewed & are unremarkable except as noted in HPI and below Constitutional: Constitutional: Denies chills, Denies fatigue, Denies fever(s) and Denies weakness Eyes: Eyes: Denies blurry vision, Denies change in vision, Denies loss of peripheral vision, Denies loss of vision, Denies other visual disturbances and Denies eye pain ENT: Denies vertigo, Denies dizziness, Denies hearing loss, Denies mouth pain, Denies nasal obstruction, Denies neck mass and Denies neck pain Cardiovascular: Cardiovascular: Denies chest pain, Denies diaphoresis, Denies syncope, Denies leg edema and Denies dyspnea Respiratory: Respiratory: Denies chest congestion, Denies cough, Denies hemoptysis, Denies dyspnea and Denies wheezing Gastrointestinal: Gastrointestinal: Denies abdominal pain, Denies constipation, Denies diarrhea, Denies nausea and Denies vomiting Genitourinary: Genitourinary: Denies hematuria, Denies change in libido, Denies nocturia, Denies genital lesions, Denies flank pain and Denies urinary urgency Musculoskeletal: Musculoskeletal: Denies abnormal gait, Denies back pain, Denies myalgias, Denies arthralgias, Denies joint swelling, Denies muscle weakness and Denies neck pain Integumentary/Breasts: Skin/Breast: Denies swelling, Denies breast pain, Denies breast mass, Denies dry skin, Denies nipple discharge, Denies unusual bruising and Denies jaundice Neurologic: Denies Neuro-related abnormal movements, Denies Abnormal speech present, Denies abnormal gait, Denies behavioral changes, Denies confusion, Denies vertigo, Denies dizziness, Denies syncope, Denies loss of vision, Denies memory loss, Denies convulsions and Denies weakness Psychiatric: Psychiatric: Denies abnormal sleep pattern, Denies behavioral changes, Denies change in libido, Denies confusion, Denies depression, Denies anhedonia and Denies memory loss Endocrine: Endocrine: Reports no additional endocrine complaints, Denies change in libido and Denies fatigue Hematologic/Lymphatic: Hematologic/Lymphatic: Reports no additional hematologic/lymphatic complaints Allergic/Immunologic: Allergic/Immunologic: Reports no additional allergic/immunologic complaints and Denies wheezing PMFSH Social History Social History Smoking status: Former smoker Additional smoking assessment comments: smoked lightly in the past. Alcohol intake: current Drinks per week: 4 Substance use type: marijuana Other substance usage details: daily smoking Living arrangements: alone Spiritual care concerns: No Meds Home Medications and Allergies Home Medications ?Medication ?Instructions ?Recorded ?Confirmed ?Type cyanocobalamin (vitamin B-12) 1,000 mcg PO DAILY 09/21/25 09/29/25 History 1,000 mcg tablet cyanocobalamin (vitamin B-12) 1,000 mcg IM MONTHLY 09/21/25 09/29/25 History 1,000 mcg/mL injection solution ibuprofen 800 mg tablet 800 mg PO Q8H PRN pain 09/21/25 09/21/25 History Allergies Allergy/AdvReac Type Severity Reaction Status Date / Time hydrocodone (From Vicodin) Allergy Intermediate Vomiting Verified 09/29/25 07:21 Vital Signs Vital Signs - 24 hr 09/29/25 06:40 Temperature 97.8 F Pulse Rate 80 Respiratory Rate 16 Blood Pressure 141/88 H Pulse Oximetry 99 Oxygen Delivery Room Air Exam Const: General: cooperative, healthy appearing, comfortable and no acute distress Orientation/consciousness: oriented to person, oriented to place and oriented to time HENMT: Head: normal to inspection Ears: external ears normal Face/Nose/Sinus: Normal external nose present and normal facial exam Face and sinus: normal facial exam Eyes: General: appearance normal, both eyes and all related structures Neck: Neck: normal visual inspection, trachea midline and supple Resp: Auscultation: clear to auscultation bilaterally, no crackles, no rales, no rhonchi and no wheezes Cardio: Rate: regular rate Rhythm: regular rhythm Heart sounds: no click, no murmurs and no rubs GI: GI Palp: No abdominal tenderness, No Soft to palpation, No Tenderness to palpation present (GI) and No Palpable mass present Auscultation: normal bowel sounds Skin: General skin exam: normal color and no rashes or lesions noted Neuro: General: oriented to person, oriented to place and oriented to time Extrem: General: normal to inspection, no joint enlargement, no clubbing, cyanosis or edema, no pedal edema and no calf tenderness Psych: Appearance: grossly normal Mental Status: mental status grossly normal Speech and movement: Normal speech and movement present Assessment and Plan Assessment and plan (1) Hydrosalpinx: Code(s): N70.11 - Chronic salpingitis Status: Acute (2) Pelvic pain: Code(s): R10.20 - Pelvic and perineal pain unspecified side Status: Acute (3) Malpositioned IUD: Code(s): T83.32XA - Displacement of intrauterine contraceptive device, initial encounter Status: Acute Plan This patient is a 25-year-old female with pelvic pain, hydrosalpinx, malpositioned IUD. We have agreed to perform laparoscopic left salpingectomy and hysteroscopic removal foreign body. She understands risks, benefits, and alternatives. She has completed informed consent process and is ready to proceed.
--- NOTE | 2025-09-29 08:13 | WPDHPUPDATE1 ---
History and Physical Update Update Date/Time: 09/29/25 08:13 History and Physical has been reviewed, including an updated exam of the patient. There are NO changes in the patient's condition. Risks, benefits, and alternatives have been discussed and questions answered. Patient agrees to proceed with procedure.
--- NOTE | 2025-09-29 08:29 | P.PNAN_ITS ---
Anes - Initial Pre Proc Eval Procedure: Operation Date: 09/29/25 08:30 Proposed Procedures p Laparoscopic Left Salpingectomy. Hysteroscopy with Removal Foreign Body - Chicho Tsai MD Date/Time: 09/29/25 08:29 Surgeon: Chicho Tsai MD Pre Op Diagnosis: Hydrosalpinx / Malposition IUD Patient Data Age: 25 Gender: F Height: 1.6 m Weight: 87.9 kg Last Vital Signs Temp 97.8 F 09/29/25 06:40 Pulse 80 09/29/25 06:40 Resp 16 09/29/25 06:40 BP 141/88 H 09/29/25 06:40 Pulse Ox 99 09/29/25 06:40 O2 Del Method Room Air 09/29/25 06:40 Allergies Allergy/AdvReac Type Severity Reaction Status Date / Time hydrocodone (From Vicodin) Allergy Intermediate Vomiting Verified 09/29/25 07:21 Home Medications ?Medication ?Instructions ?Recorded ?Confirmed ?Type cyanocobalamin (vitamin B-12) 1,000 mcg PO DAILY 09/2109/29/25 History 1,000 mcg tablet cyanocobalamin (vitamin B-12) 1,000 mcg IM MONTHLY 02/1009/29/25 History 1,000 mcg/mL injection solution ibuprofen 800 mg tablet 800 mg PO Q8H PRN pain 09/2109/21/25 History Laboratory Tests 09/29/25 07:23 POC Urine HCG, Qual Negative (Negative) Patient hx anesthesia problems: none Family hx anesthesia problems: none Results Review: All pre-operative results and documents have been reviewed as part of the pre- operative evaluation. [facility] Social History Social History Smoking status: Former smoker Additional smoking assessment comments: smoked lightly in the past. Alcohol intake: current Drinks per week: 4 Substance use type: marijuana Other substance usage details: daily smoking Living arrangements: alone Spiritual care concerns: No Anes - Eval Final PreProcedure Day of Procedure 09/29/25 08:29 Patient weight: obese Heart: regular rate and rhythm Lungs: clear to auscultation Airway: Mallampati scale class II Neurological: alert and oriented Last oral intake: >/= 8 hours ASA classification: III Emergent: no Anesthetic plan: proceed Anesthesia type and monitoring: general ETT and standard monitoring Results Review: All pre-operative results and documents have been reviewed as part of the pre- operative evaluation. Informed Consent: The patient's anesthetic plan and its attendant risks and benefits were discussed with the patient/family/POA. Questions were solicited and answers provided to the satisfaction of the patient/family/POA.
--- NOTE | 2025-09-29 09:28 | S_PTH ---
PATIENT: Caitlyn Goel LOC: [facility] U#:[id number] AGE/SX: 25/F ROOM: RE09/29/[address]: Chicho Tsai MD : [id number] BED: DIS: 09/29/2025 SPEC #: [id number] RECD: 09/29/25 09:34 STATUS: SERGEY SKINNER #: [id number] FRANCOIS: 09/29/25 09:[address]: Chicho Tsai DEPT: [facility] Surgical RECD BY: Becca Mckeon ENTERED: 09/29/25 09:35 SP TYPE: Surgical OTHR DR: PHYSICIAN NOT ON STAFF Tissues: A - Fallopian Tube Single Procedures: Gross and Microscopic Level 2 Hematoxylin and Eosin Stain
--- NOTE | 2025-09-29 09:47 | P.OP_ITS ---
Procedure Note - Detailed Date of Procedure 09/29/25 Pre-op Diagnosis Hydrosalpinx / Malposition IUD Post-op Diagnosis Same Procedure Performed Laparoscopic left salpingectomy, hysteroscopic removal of IUD, IUD insertion Surgeon Chicho Tsai MD Anesthesia General Indications Pelvic pain Findings Left-sided hydrosalpinx, adhesions around the right fallopian tube and ovary- thin, malpositioned IUD with right arm down Description of Procedure The patient was taken to the operating room. She was prepped and draped in the dorsal lithotomy position after induction general anesthesia. A 5 mm incision was made with a scalpel on the abdominal skin in the left upper quadrant of the abdomen. A 5 mm trocar was inserted into the intra-abdominal cavity under direct visualization the scope. In the same fashion a 5 mm left lower quadrant trocar was inserted and a 5 mm infraumbilical trocar was inserted. The left fallopian tube was removed with LigaSure cautery. The mesosalpinx was grasped, cauterized, transected. It was then a stepwise fashion from the ovary to the corneal region. The tube was then transected at the cornua. It was taken out the left lower quadrant trocar site. Adhesiolysis was performed around the right tube and ovary. Very brief. Thin adhesions. The pelvis was irrigated. The pneumoperitoneum was reduced. The trocars were removed. Skin was closed with subcuticular 4 micro. The patient's incisions were covered with Dermabond. Speculum was placed in the vagina. Cervix grasped with a tenaculum. Hysteroscope was inserted. The above findings were noted. The hysteroscope was used to grasp the stranding of the IUD and the IUD was removed. The new IUD was inserted in the usual fashion. Speculum and tenaculum were removed. Patient tolerated the procedure well. She was taken recovery room in stable condition. Sponge lap and needle counts were correct x2. Estimated Blood Loss 15 Complications No immediate complications Condition Stable Disposition Same day
[2025-09-29] MEDS: fentaNYL CITRATE INJ (*CRX) 100 MCG/2 ML VIAL 25 MCG IV PUSH ×4 (10:13→10:24)
[2025-09-29] MEDS: traMADol HCL (*CRX) 50 MG TABLET PO (10:50)
== END 2025-09-29 11:19 | disposition home or self-care (01) ==
PROVIDERS: Visit Provider Obstetrics & Gynecology
PROC: 0UDB8ZZ Extraction of Endometrium, Via Natural or Artificial Opening Endoscopic (ICD-10-PCS; CPT 58558; principal; 2025-09-29 08:30)
DX: N70.11 Chronic salpingitis (principal); T83.32XA Displacement of intrauterine contraceptive device, initial encounter; N73.6 Female pelvic peritoneal adhesions (postinfective); Y84.8 Other medical procedures as the cause of abnormal reaction of the patient, or of later complication, without mention of misadventure at the time of the procedure
CPT/HCPCS: 58579; 58300; 58661; 88302; A9270; J1100; J1200; J1885; J2003; J2250; J2405; J2704; J3010; J7120